=== PATIENT | male | born 1965 | race Caucasian/White ===

== ENCOUNTER 2018-02-06 12:37 | Emergency (ER) | payer OTHER ==
[~2018-02-06] VITALS: Ht 188 cm; Wt 98.9 kg
[~2018-02-06 12:37] MED LIST: FLOMAX0.4 M1 PO; LOVASTATIN40 M1 PO; MEDROL DOSEPAK1 PAC PO; MULTIVITAMIN1 TAB PO; PERCOCET 325 MG1 TA2 PO; PERCOCET 325 MG1 TAB PO; PERCOCET 5-3251 EACH PO; ZOFRAN4 M2 PO
--- NOTE | 2018-02-06 13:24 | ED GENERAL ADULT ---
History of Present Illness General Chief Complaint: Male Genitourinary Problems Stated Complaint: POSSIBLE KIDNEY STONE Source: patient Exam Limitations: no limitations Vital Signs & Intake/Output Vital Signs & Intake/Output Vital Signs Date Time Temp Pulse Resp B/P B/P Pulse O2 O2 Flow FiO2 Mean Ox Delivery Rate 02/06 1523 60 18 168/86 96 Room Air 02/06 1509 84 18 170/90 99 Room Air 02/06 1354 98.0 87 20 149/79 07 1245 98.0 87 20 149/79 98 Room Air Allergies Coded Allergies: tetracycline (Intermediate, RASH HIVES 10/06/15) codeine (PINS AND NEEDLES IN HEAD 05/10/16) Reconcile Medications Aspirin (Aspirin*) 81 MG TAB.CHEW 1 TAB PO DAILY HEART HEALTH (Reported) Ibuprofen 800 MG TABLET 1 TAB PO TID PRN pain Lovastatin 40 MG TABLET 1 TAB PO DAILY CHOLESTEROL (Reported) with food Oxycodone HCl/Acetaminophen (Percocet 5-325 MG Tablet) 5 MG-325 MG TABLET 1 TAB PO Q4-6 PRN PRN pain Tamsulosin HCl (Flomax) 0.4 MG CAP.ER.24H 1 CAP PO DAILY renal stone Triage Note: PT TO ED C/O RIGHT FLANK PAIN SINCE 0900 THIS AM. H/O KIDNEY STONES, STATES FEELS THE SAME. C/O URINARY URGENCY. Triage Nurses Notes Reviewed? yes Onset: Abrupt Duration: hour(s): Timing: constant HPI: 52-year-old male with a history of hyperlipidemia, prostate cancer, and renal stones presenting with right flank pain since 9 AM this morning. Has had 8 renal stones in the past, the first required lithotripsy and stenting, the last 7 stones have passed spontaneously. Reports that the pain feels similar to his prior kidney stones. Denies fevers, nausea, vomiting, dysuria, hematuria. (Erma Quintana) Past History Travel History Traveled to [place] past 21 day No Medical History Any Pertinent Medical History? see below for history Neurological: NONE EENT: NONE Cardiovascular: hyperlipidemia Gastrointestinal: NONE Hepatic: NONE Renal: KIDNEY STONES Psychiatric: NONE Endocrine: NONE Cancer(s): prostate cancer Tetanus Vaccine: 03/23/13 Surgical History Surgical History: non-contributory Psychosocial History What is your primary language Mohawk Tobacco Use: Current Daily Use Daily Tobacco Use Amount/Type: => 5 Cigarettes daily ETOH Use: occasional use Illicit Drug Use: denies illicit drug use Family History Hx Contributory? No (Erma Quintana) Review of Systems Review of Systems Constitutional: Reports: no symptoms. EENTM: Reports: no symptoms. Respiratory: Reports: no symptoms. Cardiovascular: Reports: no symptoms. GI: Reports: see HPI. Genitourinary: Reports: no symptoms. Musculoskeletal: Reports: no symptoms. Skin: Reports: no symptoms. Neurological/Psychological: Reports: no symptoms. Hematologic/Endocrine: Reports: no symptoms. Immunologic/Allergic: Reports: no symptoms. (Erma Quintana) Physical Exam Physical Exam General Appearance: well developed/nourished, alert, awake, mild distress Head: atraumatic, normal appearance Eyes: Bilateral: normal appearance. Neck: normal inspection Respiratory: normal breath sounds, lungs clear Cardiovascular: regular rate/rhythm Gastrointestinal: soft, non-tender Back: normal inspection, no CVA tenderness Extremities: normal inspection Neurologic/Psych: awake, alert, oriented x 3, normal gait, normal mood/affect Skin: intact, normal color, warm/dry Core Measures ACS in differential dx? No CVA/TIA Diagnosis: No Sepsis Present: No Sepsis Focused Exam Completed? No (Erma Quintana) Progress Differential Diagnoses I considered the following diagnoses in my evaluation of the patient: [Ureteral lithiasis versus hydronephrosis versus UTI versus pyelonephritis] Plan of Care: Orders Procedure Date/time Status CULTURE,URINE 02/06 1247 Active URINALYSIS 02/06 1247 Complete CBC WITHOUT DIFFERENTIAL 02/06 1247 Complete BASIC METABOLIC PANEL 02/06 1247 Complete Current Medications Sig/Boris Start time Last Medication Dose Stop Time Status Admin Ondansetron HCl 4 MG ONCE ONE 02/06 1300 CAN (Zofran) 02/06 1301 Laboratory Tests 02/06/18 1404: Anion Gap 9, Estimated GFR > 60, BUN/Creatinine Ratio 17.0, Glucose 88, Calcium 9.0, CBC w Diff NO MAN DIFF REQ, RBC 4.25 L, MCV 94.5 H, MCH 32.5 H, MCHC 34.4, RDW 13.7, MPV 8.5, Gran % 85.2 H, Lymphocytes % 8.6 L, Monocytes % 5.5, Eosinophils % 0.6, Basophils % 0.1, Absolute Granulocytes 11.8 H, Absolute Lymphocytes 1.2, Absolute Monocytes 0.8 H, Absolute Eosinophils 0.1, Absolute Basophils 0, Urine Color GREEN H, Urine Clarity HAZY H, Urine pH 5.5, Ur Specific Salley >= 1.030, Urine Protein 30 H, Urine Ketones TRACE H, Urine Nitrite NEG, Urine Bilirubin NEG, Urine Urobilinogen 0.2, Ur Leukocyte Esterase NEG, Ur Microscopic SEDIMENT EXAMINED, Urine RBC >75 H, Urine WBC RARE, Urine Crystals 3+ CA OX H, Urine Bacteria FEW H, Micro UA Comment , Urine Hemoglobin TRACE-INTACT H, Urine Glucose NEG Microbiology 02/06 1404 URINE ROUT: Urine Culture - RECD US IMPRESSION: Mild right-sided hydronephrosis without identifiable renal calculus. A right ureteral calculus is within the differential. Further evaluation can be obtained with CT abdomen pelvis without contrast if clinically indicated. UA has blood and calcium oxalate crystals, supporting the diagnosis of renal stone in combination with the ultrasound findings. Given the fact the patient only has mild hydronephrosis, and has spontaneously passed his previous [address] scan was not obtained at this time. We will discharge home with Rx Flomax and Percocet for pain, and expectant management. Patient instructed to follow up with his urologist for reevaluation. Labs show a mild leukocytosis of 13, but UA is not concerning for infection, and patient is not having any urinary symptoms. Therefore antibiotics were not given at this time. Given strict return precautions. Initial ED EKG: none (Erma Quintana) Departure Departure Disposition: HOME OR SELF CARE Condition: Stable Clinical Impression Primary Impression: Renal stone Referrals: Vee CAPONE,Bladimir Rhodes (PCP/Family) Additional Instructions: Use ibuprofen and percocet as needed for pain. Use flomax as prescribed. Follow up with your urologist for re-evaluation. Return to the emergency department for any new or worsening symptoms. Departure Forms: Customer Survey General Discharge Information Prescriptions: Current Visit Scripts Oxycodone HCl/Acetaminophen (Percocet 5-325 MG Tablet) 1 TAB PO Q4-6 PRN PRN pain #12 TAB Ibuprofen 1 TAB PO TID PRN pain #60 TAB Tamsulosin HCl (Flomax) 1 CAP PO DAILY #14 CAP (Erma Quintana) PA/CSO Co-Sign Statement Statement: ED Attending supervision documentation- I saw and evaluated the patient. I have also reviewed all the pertinent lab results and diagnostic results. I agree with the findings and the plan of care as documented in the PA's/CSO's documentation. x I have reviewed the ED Record and agree with the PA's/CSO's documentation. [] Additions or exceptions (if any) to the PAs/CSO's note and plan are summarized below: [] (Lacho CAPONE,Alfred) Critical Care Note Critical Care Note Critical Care Time: non-applicable (Erma Quintana)
[2018-02-06] MEDS ORDERED: ASPIRIN81 M4 PO (14:13)
[2018-02-06 14:14] LABS: ABSOLUTE BASOPHIL COUNT 0 /CUMM (0.0-0.2); ABSOLUTE EOSINOPHIL COUNT 0.1 /CUMM (0.0-0.7); ABSOLUTE GRANULOCYTE CT 11.8 /CUMM (1.4-6.5); ABSOLUTE LYMPH COUNT 1.2 /CUMM (1.2-3.4); ABSOLUTE MONOCYTE COUNT 0.8 /CUMM (0.10-0.60); BASOPHIL % 0.1 % (0.0-2.0); EOSINOPHIL % 0.6 % (0-5); HEMATOCRIT 40.2 % (42-52); MEAN CORPUSCULAR HGB 32.5 PG (27.0-31.0); MEAN CORPUSCULAR HGB CONC 34.4 G/DL (33.0-37.0); MEAN CORPUSCULAR VOLUME 94.5 FL (80.0-94.0); MEAN PLATELET VOLUME 8.5 FL (7.4-10.4); RBC DISTRIBUTION WIDTH 13.7 % (11.5-14.5); RED BLOOD CELL CT 4.25 /CUMM (4.70-6.10); WHITE BLOOD CELL COUNT 13.8 /CUMM (4.8-10.8)
[2018-02-06 14:28] LABS: GRANULOCYTE % 85.2 % (42.2-75.2); PLATELET COUNT 275 /CUMM (130-400)
--- NOTE | 2018-02-06 14:41 | ULTRASOUND REPORT ---
EXAMINATION: US RETROPERITONEAL COMPLETE (RENAL) CLINICAL INFORMATION: Right flank pain.. COMPARISON: CT abdomen pelvis 05/10/2016 TECHNIQUE: Real-time imaging of the kidneys and bladder. FINDINGS: RIGHT KIDNEY: 11.4 x 6.4 x 5.8 cm (SAG x AP x TRV). The kidney is normal in size, contour, and echogenicity. Renal cortical thickness is normal. Mild hydronephrosis is present. No renal calculi visualized. LEFT KIDNEY: 10.8 x 6.2 x 5.7 cm (SAG x AP x TRV). The kidney is normal in size, contour, and echogenicity. A prominent column of Ba is suggested. Renal cortical thickness is normal. No calculi or focal parenchymal lesions. No hydronephrosis. BLADDER: The bladder is decompressed and therefore cannot be evaluated. IMPRESSION: Mild right-sided hydronephrosis without identifiable renal calculus. A right ureteral calculus is within the differential. Further evaluation can be obtained with CT abdomen pelvis without contrast if clinically indicated.
[2018-02-06 15:23] VITALS: BP 168/86
[2018-02-06] MEDS ORDERED: PERCOCET 5-3251 EACH PO (15:58)
[2018-02-06] MEDS ORDERED: IBUPROFEN800 M1 PO (15:58)
[2018-02-06] MEDS ORDERED: FLOMAX0.4 M1 PO (15:58)
== END 2018-02-06 16:02 ==
LOC: ERH 12:37
PROVIDERS: Physician Assistant
DX: N20.0 Calculus of kidney (principal)
CPT/HCPCS: 76775; 81001; 87086; 96374; 96375; 96376